=== PATIENT | female | born 1970 | race Caucasian/White ===

== ENCOUNTER 2016-11-12 20:57 | Emergency (ER) | payer SELFPAY ==
[2016-11-12 21:22] VITALS: BP 152/103
[2016-11-12 22:11] LABS: Alanine Aminotransferase 11 units/L (7-56); Albumin 4.1 g/dL (3.9-5); Albumin/Globulin Ratio 1.4 %; Alkaline Phosphatase 36 units/L (35-129); Anion Gap 17 mmol/L; Blood Urea Nitrogen 11 mg/dL (7-17); Calcium 8.9 mg/dL (8.4-10.2); Carbon Dioxide 26 mmol/L (22-30); Chloride 101.2 mmol/L (98-107); Glucose 107 mg/dL (65-100); Potassium 3.7 mmol/L (3.6-5.0); Sodium 140 mmol/L (137-145); Total Protein 7.1 g/dL (6.3-8.2)
[2016-11-12 22:13] LABS: Basophils % (Auto) 0.9 % (0.0-1.8); Hematocrit 38.8 % (30.3-42.9); Hemoglobin 12.9 gm/dl (10.1-14.3); Mean Corpuscular HGB Conc 33 % (30-34); Mean Corpuscular Hemoglobin 29 pg (28-32); Mean Corpuscular Volume 86 fl (79-97); Platelet Count 270 K/mm3 (140-440); Red Cell Distribution Width 13.1 % (13.2-15.2); White Blood Count 9.3 K/mm3 (4.5-11.0)
[2016-11-12 22:31] LABS: INR 1.03 (0.87-1.13)
[2016-11-12 22:32] LABS: Partial Thromboplastin Time 30.7 Sec. (24.2-36.6)
--- NOTE | 2016-11-12 22:48 | XRay Report ---
FINAL REPORT EXAM: XR CHEST 1V AP HISTORY: Chest Pain TECHNIQUE: upright single view chest PRIORS: None. FINDINGS: Cardiac and mediastinal contours are unremarkable. No focal pulmonary infiltrate is identified. No pleural fluid collection seen. Pulmonary vasculature is unremarkable. IMPRESSION: Negative single-view chest
--- NOTE | 2016-11-14 14:07 | ED Elopement Review ---
ED Pt Elopement review - Results review Lab results: Laboratory Tests 11/12/16 11/12/16 11/12/16 21:30 21:30 21:30 WBC 9.3 RBC 4.50 Hgb 12.9 Hct 38.8 MCV 86 MCH 29 MCHC 33 RDW 13.1 L Plt Count 270 Lymph % (Auto) 29.9 Grand % (Auto) 8.3 H Eos % (Auto) 2.0 Baso % (Auto) 0.9 Lymph # 2.8 Grand # 0.8 Eos # 0.2 Baso # 0.1 Seg Neutrophils % 58.9 Seg Neutrophils # 5.5 PT 13.4 INR 1.03 APTT 30.7 D-Dimer 177.45 Sodium Potassium Chloride Carbon Dioxide Anion Gap BUN Creatinine Estimated GFR BUN/Creatinine Ratio Glucose Calcium Total Bilirubin AST ALT Alkaline Phosphatase Troponin T Total Protein Albumin Albumin/Globulin Ratio HCG, Qual Negative 11/12/16 21:30 WBC RBC Hgb Hct MCV MCH MCHC RDW Plt Count Lymph % (Auto) Grand % (Auto) Eos % (Auto) Baso % (Auto) Lymph # Grand # Eos # Baso # Seg Neutrophils % Seg Neutrophils # PT INR APTT D-Dimer Sodium 140 Potassium 3.7 Chloride 101.2 Carbon Dioxide 26 Anion Gap 17 BUN 11 Creatinine 1.1 Estimated GFR 54 BUN/Creatinine Ratio 10.00 Glucose 107 H Calcium 8.9 Total Bilirubin 0.30 AST 15 ALT 11 Alkaline Phosphatase 36 Troponin T < 0.010 Total Protein 7.1 Albumin 4.1 Albumin/Globulin Ratio 1.4 HCG, Qual - Call Back decision Pt Call Back Decision: Call pt to return to ED [facility] (chest pain will likely require inpatient evaluation. There are T-wave inversions present in leads V2, V3 and flattening in V4 with no old EKGs available for comparison.)
== END 2016-11-12 21:30 | disposition left against medical advice (07) ==
LOC: ED 20:57
DX: R07.9 Chest pain, unspecified (principal); M54.2 Cervicalgia; Z53.21 Procedure and treatment not carried out due to patient leaving prior to being seen by health care provider
CPT/HCPCS: 36415; 71010; 80053; 84484; 84703; 85025; 85379; 85610; 85730; 93005; 93010